=== PATIENT | female | born 1970 | race African-American/Black ===

== ENCOUNTER 2017-12-22 15:58 | Emergency (ER) | payer MEDICARE ==
[~2017-12-22] VITALS: Ht 172.7 cm; Wt 90.7 kg
[2017-12-22] MEDS ORDERED: EXCEDRIN MIGRA1 EAC3 (16:23)
[2017-12-22] MEDS ORDERED: NORCO 10-325 T1 EACH (16:23)
[2017-12-22] MEDS ORDERED: LEVOTHYROXINE200 MCG (16:23)
[2017-12-22] MEDS ORDERED: BOTOX100 UNIT IV (16:23)
[2017-12-22] MEDS ORDERED: LOSARTAN POTASS25 MG (16:23)
[2017-12-22] MEDS ORDERED: MECLIZINE HCL12.5 MG PO (16:23)
--- NOTE | 2017-12-22 17:40 | Diagnostic Imaging Report ---
EXAMINATION: Head CT HISTORY: Weakness, LOC COMPARISON: None. TECHNIQUE: Multidetector axial images were obtained without contrast from the foramen magnum to the vertex . The images were reconstructed using brain and bone algorithms. Thin section brain images were reformatted into coronal and sagittal planes. Image quality: Minimal motion artifact limits evaluation near the vertex. Dose modulation, iterative reconstruction, and/or weight based adjustment of the mA/kV was utilized to reduce the radiation dose to as low as reasonably achievable. FINDINGS: Parenchyma: 1. Ill-defined bilateral superior frontal white matter hypodensities mainly on the left centrum semiovale, which may be related to artifact versus edema, ischemia, chronic microvascular ischemic changes among other causes. 2. No mass or hemorrhage. No CT evidence of acute territorial vascular insult. Extra-axial spaces:No abnormal density. No extra-axial fluid collections Brain volume: Normal for age. Ventricles: No hydrocephalus or displacement. Arteries: No density suggestive of thrombus. Dural sinuses: No abnormal density. Extra-axial spaces: No abnormal density. Foramen magnum: No mass, Chiari malformation, or basilar invagination. Sella: No obvious mass. Paranasal/mastoid sinuses: Mild mucosal inflammatory thickening and partial opacification of the partially visualized ethmoidal and sphenoid sinuses. Skull/Scalp: No lytic or blastic lesions. No fractures. IMPRESSION: 1. Nonspecific mostly bilateral superior frontal white matter hypodensities as detailed above, a brain MRI is recommended for further evaluation if clinically indicated. 2. No intracranial hemorrhage, mass or hydrocephalus. 3. Partially visualized bilateral ethmoidal and sphenoid sinusitis. Signed by: Dr. Krystal Boyle M.D. on 12/22/2017 5:37 PM
--- NOTE | 2017-12-22 17:54 | Diagnostic Imaging Report ---
EXAM: XR CHEST 1 VIEW DATE: 12/22/2017 12:00 AM INDICATION: Generalized weakness COMPARISON: None FINDINGS: Lines and Tubes: None Heart and Mediastinum: No acute cardiomediastinal findings. Lungs and Pleura: No significant pleural effusion, pneumothorax, or focal consolidation. Bones and Soft Tissues: No acute findings. IMPRESSION: 1. No acute cardiopulmonary findings. Signed by: Dr. Everton Candelaria MD on 12/22/2017 5:51 PM
== END 2017-12-22 19:26 | disposition short-term general hospital (02) ==
LOC: FSED 15:58
DX: R51 Headache (principal); G61.0 Guillain-Barre syndrome; G62.89 Other specified polyneuropathies; J00 Acute nasopharyngitis [common cold]
CPT/HCPCS: 70450; 71045; 80053; 80307; 81003; 82553; 84484; 85025; 85379; 85610; 86308; 93005; 99284

== ENCOUNTER 2018-08-20 12:27 | Emergency (ER) | payer MEDICARE ==
[~2018-08-20] VITALS: Ht 175.3 cm; Wt 91.2 kg
[~2018-08-20 12:27] MED LIST: BOTOX100 UNIT IV; EXCEDRIN MIGRA1 EAC3; LEVOTHYROXINE200 MCG; LOSARTAN POTASS25 MG; MECLIZINE HCL12.5 MG PO; NORCO 10-325 T1 EACH
[2018-08-20] MEDS ORDERED: ASPIRIN 81 MG CHEW TAB PO ONE (12:30)
[2018-08-20] MEDS ORDERED: SODIUM CHLORIDE 0.9% 1000ML 1,000 ML IV SCH (12:30)
--- OUTSIDE RECORDS SUMMARY | 2018-08-20 12:30 | XMS REPORT | Continuity of Care Document ---
Author Author [facility] Interface Address Unknown Phone Unavailable Problems Problem Status Onset Date Classification Date Reported Comments Source Fibromyalgia Active Diagnosis 07/25/2018 Jacey Najam Counseling NOS Active Diagnosis 07/25/2018 Jacey Najam Pain, joint, multiple sites Active Diagnosis 07/25/2018 Jacey Najam Myalgia Active Diagnosis 07/25/2018 Jacey Najam Medications Medication Details Route Status Patient Instructions Ordering Provider Order Date Source Lyrica 1 capsule Orally Active 100 MG Orally 1 tab twice daily Najam 06/26/2018 Jacey Nachinyerem Levothyroxine Sodium 1 tablet on an empty stomach in the morning Orally Active 200 MCG Orally Once a day Najam Jacey Najam Gabapentin 1 capsule Orally Active 300 MG Orally Once a day Najam Jacey Nasukhwinder Sumatriptan 1 spray as needed one time Nasally Active 20 MG/ACT Nasally Once a day Najahuma Mari Nachinyerem Excedrin 1 tab Oral Active Oral Najam Jacey Nachinyerem Lyrica 1 capsule Orally Active 100 MG Orally 1 tab twice daily Naj[place]uma Mari Nachinyerem Meclizine HCl 1 tablet as needed Orally Active 25 MG Orally Once a day Najam Jacey Najam [place] 1 tablet as needed Orally Active 7.5-325 MG Orally every 6 hrs Najam Jacey Najam Levetiracetam 1 tablet Orally Active 750 MG Orally Twice a day Najam Jacey Najam Losartan Potassium 1 tablet Orally Active 50 MG Orally Once a day Najam Jacey Najam Keppra 1 tablet Orally Active 750 MG Orally Twice a day Najam Jacey Najam Aspirin/Acetaminophen/Caffeine (Excedrin Migraine Caplet) 1 Each Tablet Active [facility] Botulinum Toxin Type A (Botox) 100 Unit Vial Active [facility] Hydrocodone Bit/Acetaminophen ([place] 10-325 Tablet) 1 Each Tablet Active [facility] Levothyroxine Sodium 200 Mcg Tablet Active [facility] Losartan Potassium 25 Mg Tablet Active [facility] Meclizine Hcl 12.5 Mg Tablet Bedtime Active [facility] Allergies, Adverse Reactions, Alerts Substance Category Reaction Severity Reaction type Status Date Reported Comments Source NSAIDs Adverse Reaction Info Not Available Adverse Reaction Active 07/24/2018 Jacey Najam Immunizations Immunization Date Given Site Status Last Updated Comments Source Results Order Name Results Value Reference Range Date Interpretation Comments Source Vital Signs Vital Sign Value Date Comments Source Height 68 07/24/2018 Jacey Najam Diastolic (mm Hg) 83 07/24/2018 Jacey Najam Systolic (mm Hg) 122 07/24/2018 Jacey Najam Weight 208.0 07/24/2018 Jacey Najam Height 68 06/26/2018 Jacey Najam Diastolic (mm Hg) 84 06/26/2018 Jacey Najam Systolic (mm Hg) 126 06/26/2018 Jacey Najam Weight 204.4 06/26/2018 Jacey Najam Encounters Location Location Details Encounter Type Encounter Number Reason For Visit Attending Provider ADM Date DC Date Status Source Departed Emergency Room [id number] KENDRA NEAL MD 12/22/2017 12/22/2017 [facility] Procedures Procedure Code Date Perfomer Comments Source
--- OUTSIDE RECORDS SUMMARY | 2018-08-20 12:30 | XMS REPORT ---
Author Author Jacey Anand Organization [employer] Address Unknown Phone Unavailable Care Team Providers Care Therapy Aide Name Role Phone Jacey Anand CP Unavailable Allergies, Adverse Reactions, Alerts Substance Reaction Event Type NSAIDs Info Not Available Drug Allergy Problems Problem Type Condition Code Onset Dates Condition Status Assessment Fibromyalgia M79.7 Active Problem Fibromyalgia M79.7 Active Assessment Counseling NOS Z71.9 Active Assessment Pain, joint, multiple sites M25.50 Active Assessment Myalgia M79.10 Active Medications Medication Code System Code Instructions Start Date End Date Status Dosage Levothyroxine Sodium ND 36851718813 200 MCG Orally Once a day Active 1 tablet on an empty stomach in the morning Gabapentin ND 97397928534 300 MG Orally Once a day Active 1 capsule Sumatriptan ND 22142915109 20 MG/ACT Nasally Once a day Active 1 spray as needed one time Excedrin NDC 0 Oral Active 1 tab Lyrica ND 47464763950 100 MG Orally 1 tab twice daily Active 1 capsule Meclizine HCl ND 98699301220 25 MG Orally Once a day Active 1 tablet as needed [place] ND 15831162097 7.5-325 MG Orally every 6 hrs Active 1 tablet as needed Levetiracetam ND 06940480063 750 MG Orally Twice a day Active 1 tablet Losartan Potassium ND 37777396700 50 MG Orally Once a day Active 1 tablet Keppra [facility] 97693170185 750 MG Orally Twice a day Active 1 tablet Vital Signs Date/Time: July 24, 2018 Height 68 in Blood Pressure Diastolic 83 mm Hg Blood Pressure Systolic 122 mm Hg Weight 208.0 lbs Results No Known Results Summary Purpose [employer] Submission
--- OUTSIDE RECORDS SUMMARY | 2018-08-20 12:30 | XMS REPORT | Clinical Summary ---
Author Author REUBEN [facility] Address Unknown Phone Unavailable Care Team Providers Care Importer Or Exporter Name Role Phone Shamar Holloway PCP Allergies No Known Allergies Medications End Date Status Medication Sig Dispensed Refills Start Date Active HYDROcodone-acetaminophen Take 1 tablet 0 (NORCO 10-325) 10-325 mg by mouth 8 per tablet every 6 (six) hours as needed. Active losartan-hydroCHLOROthiaz Take 1 tablet 0 leonard (HYZAAR) 50-12.5 mg by mouth 8 per tablet daily. Active levothyroxine (SYNTHROID, Take 1 tablet 0 LEVOTHROID) 200 MCG by mouth 8 tablet daily. Active meclizine (ANTIVERT) 12.5 Take 1 tablet 0 mg tablet by mouth every 6 (six) hours as needed. 12/24/2018 Active levETIRAcetam (KEPPRA) Take 1 tablet 60 tablet 3 500 MG tablet (500 mg 8 total) by mouth 2 (two) times daily. 12/24/2017 Discontinued levETIRAcetam (KEPPRA) Take 1 tablet 60 tablet 3 500 MG tablet (500 mg 8 total) by mouth 2 (two) times daily. Active Problems Problem Noted Date Generalized weakness 12/22/2017 Other specified hypothyroidism 12/22/2017 Essential hypertension 12/22/2017 Other chronic pain 12/22/2017 Syncope 12/22/2017 Encounters Care Team Description Date Type Specialty Huma Calvillo MD [place], MD Ehsan Saldana Khannan K., MD Essential hypertension; Generalized weakness; Other chronic pain; Other specified hypothyroidism; Syncope, unspecified syncope type; Seizure (HCC); New onset seizure (HCC) 12/22/2017 [facility] Internal Medicine - Encounter 12/24/2017 after 08/19/2017 Family History Medical History Relation Name Comments Diabetes Maternal Grandmother Heart disease Maternal Grandmother COPD Mother Diabetes Mother Heart disease Mother Relation Name Status Comments Maternal Grandmother Mother Social History Date Tobacco Use Types Packs/Day Years Used Never Smoker Smokeless Tobacco: Never Used Alcohol Use Drinks/Week oz/Week Comments Yes Social Sex Assigned at Date Recorded Not on file Industry Job Start Date Occupation Not on file Not on file Not on file Travel End Travel History Travel Start No recent travel history available. Last Filed Vital Signs Time Taken Vital Sign Reading 12/24/2017 12:10 PM CDT Blood Pressure 124/75 12/24/2017 12:10 PM CDT Pulse 57 12/24/2017 12:10 PM CDT Temperature 36.1 C (96.9 F) 12/24/2017 12:10 PM CDT Respiratory Rate 18 12/24/2017 12:10 PM CDT Oxygen Saturation 98% - Inhaled Oxygen - Concentration 12/22/2017 8:00 PM CDT Weight 89.8 kg (198 lb) 12/22/2017 8:00 PM CDT Height 172.7 cm (5' 8") 12/22/2017 8:00 PM CDT Body Mass Index 30.11 Plan of Treatment Not on file Procedures Comments Procedure Name Priority Date/Time Associated Diagnosis RHYTHM STRIP - SCAN 07/03/2018 6:10 AM CDT REPORT OF PROCEDURE - 12/25/2017 ENDOSCOPY SCAN 11:32 AM CDT RHYTHM STRIP - SCAN 12/25/2017 11:32 AM CDT ECHOCARDIOGRAM REPORT - 12/24/2017 SCAN 5:23 PM CDT 2D ECHO W/ DOPPLER Routine 12/24/2017 (CW/PW/COLOR) 11:32 AM CDT MR BRAIN WITHOUT & WITH Routine 12/24/2017 IV CONTRAST 5:08 AM CDT URINALYSIS W/ REFLEX Routine 12/24/2017 URINE CULTURE 1:14 AM CDT CBC W/PLT COUNT & AUTO Routine 12/24/2017 DIFFERENTIAL 1:11 AM CDT CBC W/PLT COUNT & AUTO Routine 12/24/2017 DIFFERENTIAL 1:11 AM CDT MAGNESIUM Routine 12/24/2017 1:11 AM CDT BASIC METABOLIC PANEL (7) Routine 12/24/2017 1:11 AM CDT EEG AWAKE AND DROWSY Routine 12/23/2017 5:33 PM CDT CBC W/PLT COUNT & AUTO Routine 12/23/2017 DIFFERENTIAL 1:03 PM CDT CBC W/PLT COUNT & AUTO Routine 12/23/2017 DIFFERENTIAL 1:03 PM CDT MR SPINE LUMBAR WITHOUT Routine 12/23/2017 IV CONTRAST 11:50 AM CDT URINALYSIS W/ REFLEX Routine 12/23/2017 URINE CULTURE 10:26 AM CDT POCT-GLUCOSE METER Routine 12/23/2017 7:14 AM CDT MAGNESIUM Routine 12/23/2017 5:40 AM CDT BASIC METABOLIC PANEL (7) Routine 12/23/2017 5:40 AM CDT IRON, TIBC, % SAT. Routine 12/23/2017 (WITHOUT FERRITIN) 5:40 AM CDT CREATINE KINASE (CK) Routine 12/23/2017 5:40 AM CDT FERRITIN Routine 12/23/2017 5:40 AM CDT VITAMIN B12 AND FOLATE Routine 12/23/2017 5:40 AM CDT TSH/FREE T4 IF INDICATED Routine 12/23/2017 5:40 AM CDT BLOOD CULTURE Routine 12/23/2017 5:40 AM CDT RAPID INFLUENZA A&B Routine 12/22/2017 SCREEN 9:06 PM CDT RESPIRATORY PANEL [facility] Add-On 12/22/2017 8:48 PM CDT after 08/19/2017 Results * RHYTHM STRIP - SCAN (07/03/2018 6:10 AM CDT) Only the most recent of 2 results within the time period is included. Narrative Performed At * EKG-SCANNED (12/25/2017 11:32 AM CDT) Narrative Performed At * ECHOCARDIOGRAM REPORT - SCAN (12/24/2017 5:23 PM CDT) Narrative Performed At * 2D Echo W/Doppler(CW/PW/Color) (12/24/2017 11:32 AM CDT) Ejection Fraction [facility] ECHO HEARTLAB [facility] Specimen Narrative Performed At Transthoracic Echocardiography Report (TTE) [facility] ECHO HEARTLAB Demographics [facility] Patient Name KUMAR TEJEDA Date of Study 12/24/2017 [id number] Female Visit Number [id number] Room Number [id number] Number Date of Birth1970Referring Physician Huma Calvillo MD Age47 year(s)Hide Grader Jas Santacruz Interpreting Jordy Ray, Physician Fellow GAYLE Akbar Procedure Type of Study TTE procedure:2DECHO W DOPPLER(CW/PW/COLOR) (Routine) Indications:Unexplained Pre-syncope/Syncope. Clinical History HGB 10.8 HCT 36.5 % HTN THYROID DISESE Syncope Height: 68 inches Weight: 89.81 kg (198 lbs) BSA: 2.04 m^2 BMI: 30.11 kg/m^2 HR: 56 bpm BP: 135/77 mmHg Summary Normal left ventricular chamber size. Normal wall thickness. Normal overall left ventricular systolic function. No apparent segmental wall motion abnormalities. LVEF by Villa's method of disk assessment is normal (55-60%) . Otherwise, essentially normal exam. Previous Study No prior exam available for comparison. Signature Findings Technical Quality: Technically adequate exam. Rhythm/BPSlow rhythm during the exam. Left Ventricle Normal left ventricular chamber size. Normal wall thickness. Normal overall left ventricular systolic function. No apparent segmental wall motion abnormalities. LVEF by Villa's method of disk assessment is normal (55-60%) . Left AtriumLA size is normal . Right VentricleThe borderline enlarged right ventricular chamber size RV systolic function is within normal limits. Right Atrium RA size is normal. Aortic Valve Normal AoV structure A trace of Aortic regurgitation Mitral Valve Normal MV structure Tricuspid ValveTV structure is normal. A trace of tricuspid regurgitation. Estimated peak systolic PA pressure is 20-25 mmHg . Pulmonic Valve Normal PV structure by limited views A trace of pulmonary regurgitation. AortaAortic root size (SInus of Valsalva diameter) is normal . PericardiumNo significant pericardial effusion is visualized. IVC/SVC/PA/PV/PleuralThe estimated RA pressure by IVC dynamics 0-5mmHg . Chambers/Structures Left Atrium LA Volume: 43.76 ml LA Area: 16.69 cm^2 LA Vol. Index: 21 ml/m^2 Left Ventricle LVIDd: 4.84 cmLVEDV:109.37 ml LVIDs: 3.48 cmLVESV:42.11 ml LV Septum Diastolic: 0.92 cmLVEF 2D Cube: 62.8 % LV Septum Systolic: 1.22 cm LV PW Diastolic: 1.01 cmLV Length: 8.51 cm LV PW Systolic: 1.3 cmLV FS: 28.1 % LVEDV Villa's:108.25 ml LVESV Villa's:43.4 ml LVEDVI: 53 ml/m^2 LVEF Villa's: 59.9 %LVESVI: 21 ml/m^2 LVOT Diameter: 2.23 cm LVEF: 61.5 % Right Ventricle RVOT Diameter: 4.21 cm Doppler/Quantitative Measurements Mitral Valve MV Peak E-Wave: 0.69 m/sMV Peak A-Wave: 0.55 m/s E/A Ratio: 1.26 Peak Gradient: 1.9 mmHg Deceleration Time: 266.7 msec MV Serjio. Peak: Tissue Doppler E' Septal Velocity: 0.11 m/sE/E': 6.3 Aortic Valve Peak Velocity: 1.45 m/sMean Velocity: 0.98 m/s Peak Gradient: 8.38 mmHg Mean Gradient: 4.42 mmHg AV Area (continuity): 2.95 cm^2 AV VTI: 30.57 cm AV DVI: 0.76 LVOT Peak Velocity: 1.12 m/s Peak Gradient: 5.05 mmHg Mean Velocity: 0.77 m/s Mean Gradient: 2.75 mmHg LVOT Diameter: 2.23 cmLVOT VTI: 23.09 cm LVOT Area: 3.91 cm^2LVOT SV:90.14 ml LVOT CO: 5.05 l/min LVOT CI: 2.48 l/min/m^2 Procedure Note Interface, External Ris In - 12/24/2017 5:00 PM CDT Transthoracic Echocardiography Report (TTE) Demographics Patient Name KUMAR TEJEDA Date of Study 12/24/2017 Gender Female Visit Number [id number] Race Black Room Number [id number] Number Date of 1970 Referring Physician Huma Calvillo MD Age 47 year(s) Hide Grader Jas Santacruz Interpreting Jordy Ray, Physician Fellow GAYLE Akbar Procedure Type of Study TTE procedure:2DECHO W DOPPLER(CW/PW/COLOR) (Routine) Indications:Unexplained Pre-syncope/Syncope. Clinical History HGB 10.8 HCT 36.5 % HTN THYROID DISESE Syncope Height: 68 inches Weight: 89.81 kg (198 lbs) BSA: 2.04 m^2 BMI: 30.11 kg/m^2 HR: 56 bpm BP: 135/77 mmHg Summary Normal left ventricular chamber size. Normal wall thickness. Normal overall left ventricular systolic function. No apparent segmental wall motion abnormalities. LVEF by Villa's method of disk assessment is normal (55-60%) . Otherwise, essentially normal exam. Previous Study No prior exam available for comparison. Signature Findings Technical Quality: Technically adequate exam. Rhythm/BP Slow rhythm during the exam. Left Ventricle Normal left ventricular chamber size. Normal wall thickness. Normal overall left ventricular systolic function. No apparent segmental wall motion abnormalities. LVEF by Villa's method of disk assessment is normal (55-60%) . Left Atrium LA size is normal . Right Ventricle The borderline enlarged right ventricular chamber size RV systolic function is within normal limits. Right Atrium RA size is normal. Aortic Valve Normal AoV structure A trace of Aortic regurgitation Mitral Valve Normal MV structure Tricuspid Valve TV structure is normal. A trace of tricuspid regurgitation. Estimated peak systolic PA pressure is 20-25 mmHg . Pulmonic Valve Normal PV structure by limited views A trace of pulmonary regurgitation. Aorta Aortic root size (SInus of Valsalva diameter) is normal . Pericardium No significant pericardial effusion is visualized. IVC/SVC/PA/PV/Pleural The estimated RA pressure by IVC dynamics 0-5mmHg . Chambers/Structures Left Atrium LA Volume: 43.76 ml LA Area: 16.69 cm^2 LA Vol. Index: 21 ml/m^2 Left Ventricle LVIDd: 4.84 cm LVEDV:109.37 ml LVIDs: 3.48 cm LVESV:42.11 ml LV Septum Diastolic: 0.92 cm LVEF 2D Cube: 62.8 % LV Septum Systolic: 1.22 cm LV PW Diastolic: 1.01 cm LV Length: 8.51 cm LV PW Systolic: 1.3 cm LV FS: 28.1 % LVEDV Villa's:108.25 ml LVESV Villa's:43.4 ml LVEDVI: 53 ml/m^2 LVEF Villa's: 59.9 % LVESVI: 21 ml/m^2 LVOT Diameter: 2.23 cm LVEF: 61.5 % Right Ventricle RVOT Diameter: 4.21 cm Doppler/Quantitative Measurements Mitral Valve MV Peak E-Wave: 0.69 m/s MV Peak A-Wave: 0.55 m/s E/A Ratio: 1.26 Peak Gradient: 1.9 mmHg Deceleration Time: 266.7 msec MV Serjio. Peak: Tissue Doppler E' Septal Velocity: 0.11 m/s E/E': 6.3 Aortic Valve Peak Velocity: 1.45 m/s Mean Velocity: 0.98 m/s Peak Gradient: 8.38 mmHg Mean Gradient: 4.42 mmHg AV Area (continuity): 2.95 cm^2 AV VTI: 30.57 cm AV DVI: 0.76 LVOT Peak Velocity: 1.12 m/s Peak Gradient: 5.05 mmHg Mean Velocity: 0.77 m/s Mean Gradient: 2.75 mmHg LVOT Diameter: 2.23 cm LVOT VTI: 23.09 cm LVOT Area: 3.91 cm^2 LVOT SV:90.14 ml LVOT CO: 5.05 l/min LVOT CI: 2.48 l/min/m^2 Performing Organization Address City/State/[facility] Corporationcode Phone Number [facility] ECHO [facility] * MR brain without & with IV contrast (12/24/2017 5:08 AM CDT) Specimen Narrative Performed At FINAL REPORT [facility] Exam: MRI brain with and without contrast Comparison:None. Reason for exam: Seizures new or progressive. Liver and kidney lesions. Discussion: Multiplanar MR imaging of the brain was provided [id number] IV gadolinium administration using T1, T2, FLAIR, FFE, diffusion weighted sequences, and ADC map imaging. There is no intracranial mass, mass effect, extra-axial collection, hydrocephalus or herniation. The temporal lobes structures including the hippocampal formations are unremarkable, without signal abnormality.There is no restricted diffusion to suggest an acute infarct. There is no abnormality on susceptibility sequences to suggest hemorrhage or hemosiderin deposition. The skull base flow-voids are seen in keeping with their patency. There is mild to moderate paranasal sinus mucosal thickening. There are secretions in the right sphenoid sinus and bilateral ethmoid sinuses which represent acute sinusitis. The mastoid air cells are clear. The orbits, sella and parasellar regions are unremarkable. The craniocervical junction is normal. Impression: Paranasal sinus mucosal inflammatory disease with small secretions which may represent acute sinusitis in the proper clinical setting. Otherwise unremarkable contrast-enhanced brain MRI. Signed: Jacquelin Schneider MD Report Verified Date/Time:12/24/2017 05:44:19 Reading Location: [facility] B1 C013Y CT Body Reading Room Procedure Note Interface, External Ris In - 12/24/2017 11:25 AM CDT FINAL REPORT Exam: MRI brain with and without contrast Comparison: None. Reason for exam: Seizures new or progressive. Liver and kidney lesions. Discussion: Multiplanar MR imaging of the brain was provided vtr-[id number]-wyqy IV gadolinium administration using T1, T2, FLAIR, FFE, diffusion weighted sequences, and ADC map imaging. There is no intracranial mass, mass effect, extra-axial collection, hydrocephalus or herniation. The temporal lobes structures including the hippocampal formations are unremarkable, without signal abnormality. There is no restricted diffusion to suggest an acute infarct. There is no abnormality on susceptibility sequences to suggest hemorrhage or hemosiderin deposition. The skull base flow-voids are seen in keeping with their patency. There is mild to moderate paranasal sinus mucosal thickening. There are secretions in the right sphenoid sinus and bilateral ethmoid sinuses which represent acute sinusitis. The mastoid air cells are clear. The orbits, sella and parasellar regions are unremarkable. The craniocervical junction is normal. Impression: Paranasal sinus mucosal inflammatory disease with small secretions which may represent acute sinusitis in the proper clinical setting. Otherwise unremarkable contrast-enhanced brain MRI. Signed: Jacquelin Schneider MD Report Verified Date/Time: 12/24/2017 05:44:19 Reading Location: [facility] B1 C013Y CT Body Reading Room Performing Organization Address City/State/Zipcode Phone Number [facility] * Urinalysis w/Microscopic + Reflex to Culture (12/24/2017 1:14 AM CDT) Only the most recent of 2 results within the time period is included. Color, UA Yellow [facility] Clarity, UA Clear [facility] Specific Triangle, UA 1.012 1.001 - 1.035 [facility] pH, UA 6.0 5.0 - 8.0 [facility] Protein, UA Negative Negative [facility] Glucose, UA Negative Negative [facility] Ketones, UA Negative Negative [facility] Bilirubin, UA Negative Negative [facility] Blood, UA Negative Negative [facility] Nitrite, UA Negative Negative [facility] Leukocytes, UA Negative Negative [facility] Urobilinogen, UA 0.2 0.2 - 1.0 mg/dL [facility] RBC, UA 1 /HPF [facility] WBC, UA 3 /HPF [facility] Bacteria, UA Many [facility] Squam Epithel, UA 1 /HPF [facility] Amorphous Crystals Rare [facility] Specimen Source [facility] Specimen Urine Performing Organization Address City/State/Zipcode Phone Number [facility] [address] [place] [address] MED[facility] * CBC with platelet count + automated diff (12/24/2017 1:11 AM CDT) Only the most recent of 2 results within the time period is included. WBC 5.8 3.5 - 10.5 K/L [facility] RBC 4.04 3.93 - 5.22 M/L [facility] Hemoglobin 10.8 (L) 11.2 - 15.7 GM/DL [facility] Hematocrit 36.5 34.1 - 44.9 % [facility] MCV 90.3 79.4 - 94.8 fL [facility] MCH 26.7 25.6 - 32.2 pg [facility] MCHC 29.6 (L) 32.2 - 35.5 GM/DL [facility] RDW 12.6 11.7 - 14.4 % [facility] Platelets 214 150 - 450 K/CU MM [facility] MPV 9.6 9.4 - 12.3 fL [facility] nRBC 0 0 - 0 /100 WBC [facility] % Neutros 32 % [facility] % Lymphs 57 % [facility] % Monos 6 % [facility] % Eos 5 % [facility] % Baso 1 % [facility] # Neutros 1.86 1.56 - 6.13 K/L [facility] # Lymphs 3.31 1.18 - 3.74 K/L [facility] # Monos 0.34 0.24 - 0.36 K/L [facility] # Eos 0.26 0.04 - 0.36 K/L [facility] # Baso 0.03 0.01 - 0.08 K/L [facility] Immature 0 0 - 1 % [facility] Granulocytes-[facility] Specimen Blood Performing Organization Address City/State/Zipcode Phone Number [facility] [address] [place] [address] MEDICAL CENTER * Magnesium (12/24/2017 1:11 AM CDT) Only the most recent of 2 results within the time period is included. Magnesium 1.9 1.6 - 2.6 mg/dL [facility] Specimen Blood Performing Organization Address City/State/Zipcode Phone Number [facility] [address] [place], [place] [id number] [facility] * Basic metabolic panel (12/24/2017 1:11 AM CDT) Only the most recent of 2 results within the time period is included. Sodium 140 136 - 145 meq/L [facility] Potassium 3.3 (L) 3.5 - 5.1 meq/L [facility] Chloride 111 (H) 98 - 107 meq/L [facility] CO2 20 (L) 22 - 29 meq/L [facility] BUN 9 7 - 21 mg/dL [facility] Creatinine 0.69 0.57 - 1.25 mg/dL [facility] Glucose 96 70 - 105 mg/dL [facility] Calcium 8.6 8.4 - 10.2 mg/dL [facility] EGFR 110Comment: ESTIMATED GFR IS mL/min/1.73 sq m [facility] NOT ACCURATE CREATININE [facility] CLEARANCE IN PREDICTING GLOMERULAR FILTRATION RATE. ESTIMATED GFR IS NOT APPLICABLE FOR DIALYSIS PATIENTS. Specimen Blood Performing Organization Address City/State/Zipcode Phone Number [facility] [address] [place] [address] [facility] * EEG AWAKE AND DROWSY (12/23/2017 5:33 PM CDT) Specimen Narrative Performed At DATE OF EE12/23/2017 GE RIS DATE OF REPORT: 12/23/2017 ACC: [id number] EE Start time: 1712 hrs Stop time: 1733 hrs ICD-10:R56.9, R55 CPT Code: 04158 HISTORY: 47 year old RHD female referred for inpatient EEG to assess for epileptiform activity. Her history if significant for hypothyroidism, HTN, migraines, and chronic back pain. She has recently been experiencing recurrent syncope with associated motor weakness that lasts for several minutes afterward. She had witnessed events in MRI today concerning for seizures. MEDICATIONS THAT COULD AFFECT EEG: [place] TECHNICAL SUMMARY: This is a digital EEG with video was recorded with 32 input channels on a Nativoo system and then reviewed with bipolar and referential montages using the modified combinatorial system nomenclature. DESCRIPTION OF RECORD: During the maximally alert state a 9.5 Hz posterior dominant rhythm was seen that was symmetric, reactive to eye opening and well regulated.More anteriorly, low voltage fronto-central beta predominated.Drowsiness was characterized by alpha attenuation and increased frontocentral theta. There was also independent bilateral temporal delta activity seen in drowsiness as well. No stage II sleep features were seen. HV: Hyperventilation was not performed. PHOTIC STIMULATION: Photic stimulation was done from 3-30 Hz; no photic driving was seen; photoparoxysmal responses were absent. IMPRESSION: Normal awake and drowsy EEG CLINICAL CORRELATION: An EEG without epileptiform discharges does not exclude the possibility of epilepsy.It the clinical suspicion of epilepsy remains, consider additional EEG recordings. Samia Schaefer M.D. Fellow, [facility] Neurophysiology Service Bernard Pryor M.D., GANESH, MAURIZIO ROWAN Professor of Neurology, [facility] [employer] Director, [facility] Head, [facility] Neurophysiology Lab Procedure Note Interface, External Ris In - 12/23/2017 7:22 PM CDT DATE OF EE12/23/2017 DATE OF REPORT: 12/23/2017 ACC: [id number] EE Start time: 1712 hrs Stop time: 1733 hrs ICD-10: R56.9, R55 CPT Code: 25039 HISTORY: 47 year old RHD female referred for inpatient EEG to assess for epileptiform activity. Her history if significant for hypothyroidism, HTN, migraines, and chronic back pain. She has recently been experiencing recurrent syncope with associated motor weakness that lasts for several minutes afterward. She had witnessed events in MRI today concerning for seizures. MEDICATIONS THAT COULD AFFECT EEG: [place] TECHNICAL SUMMARY: This is a digital EEG with video was recorded with 32 input channels on a Nativoo system and then reviewed with bipolar and referential montages using the modified combinatorial system nomenclature. DESCRIPTION OF RECORD: During the maximally alert state a 9.5 Hz posterior dominant rhythm was seen that was symmetric, reactive to eye opening and well regulated. More anteriorly, low voltage fronto-central beta predominated. Drowsiness was characterized by alpha attenuation and increased frontocentral theta. There was also independent bilateral temporal delta activity seen in drowsiness as well. No stage II sleep features were seen. HV: Hyperventilation was not performed. PHOTIC STIMULATION: Photic stimulation was done from 3-30 Hz; no photic driving was seen; photoparoxysmal responses were absent. IMPRESSION: Normal awake and drowsy EEG CLINICAL CORRELATION: An EEG without epileptiform discharges does not exclude the possibility of epilepsy. It the clinical suspicion of epilepsy remains, consider additional EEG recordings. Samia Schaefer M.D. Fellow, [facility] Neurophysiology Service Bernard Pryor M.D., FACNS, FAAN, MAURIZIO Professor of Neurology, [facility] Director, [facility] Epilepsy [place] Head, Sushil [facility] Neurophysiology Lab Performing Organization Address City/State/Zipcode Phone Number [facility] * MR spine lumbar without IV contrast (12/23/2017 11:50 AM CDT) Specimen Narrative Performed At FINAL REPORT [facility] MR Lumbar spine without contrast INDICATION: Lower extremity weakness. TECHNIQUE: MRI of the lumbar spine utilizing the following sequences: Sagittal T1, T2, STIR; axial T1 and T2 COMPARISON: None available. FINDINGS: There is mild left convex lumbar spine curvature. Vertebral height and alignment are otherwise maintained. There are degenerative endplate changes, Schmorl's nodes, and incidental hemangiomas. The spinal canal is congenitally narrow. The conus medullaris is unremarkable and terminates at L1-2. T12-L1: Unremarkable L1-2: Mild facet arthropathy. No significant canal or foraminal stenosis. L2-3: Left asymmetric disc bulge, facet arthropathy, and ligamentous thickening. Minimal left foraminal stenosis. No significant canal or right foraminal stenosis. L3-4: Left asymmetric disc bulge with broad based left foraminal disc protrusion, facet arthropathy, and ligamentous thickening. Mild to moderate left and mild right foraminal stenosis. Mild canal stenosis. L4-5: Disc bulge extending into the foraminal regions, left greater than right facet arthropathy, and ligamentous thickening. Mild to moderate left greater than right foraminal stenosis. Mild to moderate canal stenosis. L5-S1: Left greater than right facet arthropathy and ligamentous thickening with mild left foraminal stenosis. No significant canal or right foraminal stenosis. There is an incidental Tarlov/perineural cyst at S2-3 on the left. A small right renal T2 hyperintense lesion is too small to characterize, but possibly a cyst. There is a hepatic 1.3 cm T2 hyperintense lesion, potentially a cyst or hemangioma. Advise dedicated liver imaging. There is colonic diverticulosis and paraspinal muscle deconditioning. IMPRESSION: 1. Congenitally narrow spinal canal with degenerative changes and multifactorial mild to moderate L4-5 and mild L3-4 canal stenosis. 2. Neural foraminal stenoses as discussed. Advise correlation with radiculopathic symptoms 3. Small hepatic and right renal lesions. Consider dedicated imaging. 4. Colonic diverticulosis. 5. If Guillain Jber syndrome remains a concern, postcontrast imaging is suggested as sensitivity is markedly limited on a noncontrast study. Signed: Taty Warren MD Report Verified Date/Time:12/23/2017 13:35:12 Reading Location: [facility] [id number] Neuro Reading Room Procedure Note Interface, External Ris In - 12/23/2017 1:37 PM CDT FINAL REPORT MR Lumbar spine without contrast INDICATION: Lower extremity weakness. TECHNIQUE: MRI of the lumbar spine utilizing the following sequences: Sagittal T1, T2, STIR; axial T1 and T2 COMPARISON: None available. FINDINGS: There is mild left convex lumbar spine curvature. Vertebral height and alignment are otherwise maintained. There are degenerative endplate changes, Schmorl's nodes, and incidental hemangiomas. The spinal canal is congenitally narrow. The conus medullaris is unremarkable and terminates at L1-2. T12-L1: Unremarkable L1-2: Mild facet arthropathy. No significant canal or foraminal stenosis. L2-3: Left asymmetric disc bulge, facet arthropathy, and ligamentous thickening. Minimal left foraminal stenosis. No significant canal or right foraminal stenosis. L3-4: Left asymmetric disc bulge with broad based left foraminal disc protrusion, facet arthropathy, and ligamentous thickening. Mild to moderate left and mild right foraminal stenosis. Mild canal stenosis. L4-5: Disc bulge extending into the foraminal regions, left greater than right facet arthropathy, and ligamentous thickening. Mild to moderate left greater than right foraminal stenosis. Mild to moderate canal stenosis. L5-S1: Left greater than right facet arthropathy and ligamentous thickening with mild left foraminal stenosis. No significant canal or right foraminal stenosis. There is an incidental Tarlov/perineural cyst at S2-3 on the left. A small right renal T2 hyperintense lesion is too small to characterize, but possibly a cyst. There is a hepatic 1.3 cm T2 hyperintense lesion, potentially a cyst or hemangioma. Advise dedicated liver imaging. There is colonic diverticulosis and paraspinal muscle deconditioning. IMPRESSION: 1. Congenitally narrow spinal canal with degenerative changes and multifactorial mild to moderate L4-5 and mild L3-4 canal stenosis. 2. Neural foraminal stenoses as discussed. Advise correlation with radiculopathic symptoms 3. Small hepatic and right renal lesions. Consider dedicated imaging. 4. Colonic diverticulosis. 5. If Guillain Jber syndrome remains a concern, postcontrast imaging is suggested as sensitivity is markedly limited on a noncontrast study. Signed: Taty Warren MD Report Verified Date/Time: 12/23/2017 13:35:12 Reading Location: [facility] [id number] Neuro Reading Room Performing Organization Address City/State/Zipcode Phone Number [facility] * POC-Glucose meter (12/23/2017 7:14 AM CDT) POC-Glucose Meter 92Comment: TESTED AT [facility] 70 - 110 mg/dL [place] [id number] [facility] Specimen Blood Performing Organization Address City/[facility]/Zipcode Phone Number [address] [address] [facility] * Vitamin B12 and Folate (12/23/2017 5:40 AM CDT) Vitamin B12 459 213 - 816 pg/mL [facility] Folate 10.9 >=7.0 ng/mL [facility] Specimen Blood Performing Organization Address City/[facility] Phone Number [address] * TSH/Free T4 If Indicated (12/23/2017 5:40 AM CDT) TSH 2.82 0.35 - 4.94 uIU/mL [facility] Specimen Blood Performing Organization Address City/[facility]/Zipcode Phone Number [address] * Iron, TIBC, % sat. (without ferritin) (12/23/2017 5:40 AM CDT) Iron 86 40 - 160 ug/dL [facility] TIBC 359 250 - 450 ug/dL [facility] Iron % Saturation 24 20 - 55 % [facility] Specimen Blood Performing Organization Address [facility] Phone Number [address] * Blood culture (12/23/2017 5:40 AM CDT) Result No growth in 5 days [facility] Specimen Blood Performing Organization Address City/[facility] Phone Number [address] * Ferritin (12/23/2017 5:40 AM CDT) Ferritin 46 5 - 275 ng/mL [facility] Specimen Blood Performing Organization Address City/[facility] Phone Number [address] * Creatine Kinase (CK) (12/23/2017 5:40 AM CDT) Total CK 172 29 - 200 U/L [facility] Specimen Blood Performing Organization Address City/State/Zipcode Phone Number [facility] [address] [place], [place] [phone] [facility] [place] * Rapid Influenza A&B Screen (12/22/2017 9:06 PM CDT) Rapid Influenza A Antigen NEGATIVE LABORATORY FINDING Negative, Inconclusive [facility] Rapid influenza B Antigen NEGATIVE LABORATORY FINDING Negative, Inconclusive [facility] Specimen Nasal Performing Organization Address City/State/Zipcode Phone Number [facility] [address] [place], [place] [phone] [facility] * Respiratory Panel [facility] (12/22/2017 8:48 PM CDT) Human Metapneumovirus Not detected Not detected, Equivocal [facility] Rhinovirus Not detected Not detected, Equivocal [facility] Influenza A Not detected Not detected, Equivocal [facility] INFLUENZA A (NO SUBTYPE) Not detected Not detected, Equivocal [facility] Influenza A subtype H1 Not detected Not detected, Equivocal [facility] Influenza A Subtype H3 Not detected Not detected, Equivocal [facility] Influenza A Subtype Not detected Not detected, Equivocal [facility] H1-2009 [facility] Influenza B Not detected Not detected, Equivocal [facility] Respiratory Syncytial Not detected Not detected, Equivocal [facility] Virus [facility] Parainfluenza Virus 1 Not detected Not detected, Equivocal [facility] Parainfluenza Virus 2 Not detected Not detected, Equivocal [facility] Parainfluenza virus 3 Not detected Not detected, Equivocal [facility] Parainfluenza Virus 4 Not detected Not detected, [facility]ivocal [facility] Adenovirus Not detected Not detected, Equivocal [facility] Coronavirus 229E Not detected Not detected, [facility]ocal [facility] Coronavirus HKU1 Not detected Not detected, Equivocal [facility] Coronavirus NL63 Not detected Not detected, Equivocal [facility] Coronavirus OC43 Not detected Not detected, Equiv[facility] Bordetella Pertussis Not detected Not detected, [facility] Chlamydophila Pneumoniae Not detected Not detected, Equivocal [facility] Mycoplasma Pneumoniae Not detected Not detected, Equivocal [facility] Specimen Nasopharyngeal Narrative Performed At Other viruses and bacteria not targeted by this PCR panel cannot be excluded; [facility] therefore clinical correlation and follow up of serology, culture results, and [facility] other molecular studies is required. The results are not intended to be used as the sole means for clinical diagnosis or patient management decisions. This sample was tested at the [facility] using the [employer]unch[employer] Respiratory Panel. It is FDA cleared and has been verified and approved by the [facility] for clinical use on nasal swab specimens. It is not FDA-cleared for use on bronchial wash/lavage samples. However, for this sample type, validation was performed and test characteristics were determined and approved, by [facility] for clinical use under the Clinical Laboratory Improvement Amendments (CLIA) of 1988 requirements. Therefore, FDA clearance is not required.This laboratory is CLIA-certified and [employer] (CAP)-accredited to perform high complexity testing. Performing Organization Address City/State/Zipcode Phone Number [address] [phone] [facility] 08/19/2017 Insurance Payer Benefit Subscriber ID Type Phone Address Plan / Group [facility] [employer] xxxxxxxx [facility] Contracted ALL Advance Directives For more information, please contact: [address] [address] Date Inactivated Comments Code Status Date Activated 12/24/2017 7:07 PM Full Code 12/22/2017 10:06 PM This code status was determined by: Patient
--- OUTSIDE RECORDS SUMMARY | 2018-08-20 12:30 | XMS REPORT ---
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 Role Phone Jacey Anand CP Unavailable [...] End Date Status Dosage Levothyroxine Sodium ND 31285564559 200 MCG Orally Once a day Active 1 tablet on an empty stomach in the morning Sumatriptan ND 21612428637 20 MG/ACT Nasally Once a day Active 1 spray as needed one time Lejunior ND 11485055626 7.5-325 MG Orally every 6 hrs Active 1 tablet as needed Meclizine HCl ND 60972799386 25 MG Orally Once a day Active 1 tablet as needed Lyrica ND 13980865156 100 MG Orally 1 tab twice daily June 26, 2018 Active 1 capsule Excedrin ND 0 Oral Active 1 tab Levetiracetam ND 17217415567 750 MG Orally Twice a day Active 1 tablet Gabapentin ND 43668511275 300 MG Orally Once a day Active 1 capsule Losartan Potassium ND 48078029162 50 MG Orally Once a day Active 1 tablet Vital Signs Date/Time: June 26, 2018 Height 68 in Blood Pressure Diastolic 84 mm Hg Blood Pressure Systolic 126 mm Hg Weight 204.4 lbs Results No Known Results Summary Purpose [employer] Submission
--- OUTSIDE RECORDS SUMMARY | 2018-08-20 12:31 | XMS REPORT ---
Author Author [facility] Address Unknown Phone Unavailable Care Team Providers Care [employer] Name Role Phone En PATEL Unavailable Unavailable Ailyn NEAL Unavailable Unavailable Payers Payer Name Policy Type Policy Number Effective Date Expiration Date Problems This patient has no known problems. Allergies, Adverse Reactions, Alerts This patient has no known allergies or adverse reactions. Medications This patient has no known medications. Results Test Description Test Time Test Comments Text Results Atomic Results Result Comments - XR CHEST 2 V 2018-08-19 13:18:00 FAX: Naveen Paz DO [phone] [facility]: O [facility]: REG FAX: Raul Paz DO [phone] Name: KUMAR KNOWLES [facility] : 1970 Age/S: 48/F [address] Unit #: [id number] Loc: [place] [address] Phys: Naveen Gallardo DO Acct: [id number] Dis Date: Status: REG CLI PHONE #: [phone] Exam Date: 08/19/2018 1249 FAX #: [phone] Reason: R06.02 EXAMS: CPT CODE: [id number] XR CHEST 2 V 39860 HISTORY: R06.02. COMPARISON: None available. AP and lateral view of the chest: No acute infiltrates, effusion or congestion. Cardiac and the mediastinal silhouette are normal. IMPRESSION: No acute infiltrates, effusion or congestion. at 1318 Reported and signed by: Prudencio Peacock M.D. CC: Naveen Gallardo; Raul Gallardo DO Technologist: DREW ORTIZ JR Trnscrd Date/Time/By: 08/19/2018 (5058) : By: [email or web address] Orig Print D/T: S: 08/19/2018 (7588) PAGE 1 Signed Report BLOOD CULTURE 2017-12-28 11:00:00 CULTURE (BEAKER) (test tyxk=8105) No growth in 5 days MR, BRAIN, [id number] 05:44:00FINAL REPORT Exam: MRI brain with and without contrast Comparison: None. Reason for exam: Seizures new or progressive. Liver and kidney lesions. Discussion: Multiplanar MR imaging of the brain was provided [id number] IV gadolinium administration using T1, T2, FLAIR, [...] are unremarkable. The craniocervical junction is normal. Impression:Paranasal sinus mucosal inflammatory disease with small secretions which may represent acute sinusitis in the proper clinical setting.Otherwise unremarkable contrast-enhanced brain MRI. Signed: Jacquelin Schneider MDReport Verified Date/Time: 12/24/2017 05:44:19 Reading Location: [facility] C013Y CT Body Reading Room ALYSIS W/ REFLEX URINE [id number] 01:55:00* Test Item Value Reference Range Comments COLOR (BEAKER) (test xbqt=269) Yellow CLARITY (BEAKER) (test poik=555) Clear SPECIFIC GRAVITY UA (BEAKER) (test kbvr=390) 1.012 1.001-1.035 PH UA (BEAKER) (test kwnl=644) 6.0 5.0-8.0 PROTEIN UA (BEAKER) (test ofnw=978) Negative Negative GLUCOSE UA (BEAKER) (test hepd=776) Negative Negative KETONES UA (BEAKER) (test ttzk=211) Negative Negative BILIRUBIN UA (BEAKER) (test uvou=471) Negative Negative BLOOD UA (BEAKER) (test upix=549) Negative Negative NITRITE UA (BEAKER) (test fwei=005) Negative Negative LEUKOCYTE ESTERASE UA (BEAKER) (test wmim=215) Negative Negative UROBILINOGEN UA (BEAKER) (test cxqs=624) 0.2 mg/dL 0.2-1.0 RBC UA (BEAKER) (test daav=020) 1 /HPF WBC UA (BEAKER) (test ifoh=623) 3 /HPF BACTERIA (BEAKER) (test brhk=400) Many SQUAMOUS EPITHELIAL (BEAKER) (test pmox=191) 1 /HPF AMORPHOUS CRYSTALS (BEAKER) (test gbsw=8876) Rare SOURCE(BEAKER) (test twnu=4437) [id number] 01:43:00* Test Item Value Reference Range Comments MAGNESIUM (BEAKER) (test ffsb=283) 1.9 mg/dL 1.6-2.6 BASIC METABOLIC [id number] 01:43:00* Test Item Value Reference Range Comments SODIUM (BEAKER) (test vqrs=324) 140 meq/L 136-145 POTASSIUM (BEAKER) (test pkzq=676) 3.3 meq/L 3.5-5.1 CHLORIDE (BEAKER) (test yqsd=710) 111 meq/L 98-107 CO2 (BEAKER) (test lhub=210) 20 meq/L 22-29 BLOOD UREA NITROGEN (BEAKER) (test rwst=410) 9 mg/dL 7-21 CREATININE (BEAKER) (test okkz=864) 0.69 mg/dL 0.57-1.25 GLUCOSE RANDOM (BEAKER) (test epeg=986) 96 mg/dL 70-105 CALCIUM (BEAKER) (test gayh=104) 8.6 mg/dL 8.4-10.2 EGFR (BEAKER) (test hpde=6711) 110 mL/min/1.73 sq m ESTIMATED GFR IS NOT ACCURATE CREATININE CLEARANCE IN PREDICTING GLOMERULAR FILTRATION RATE. ESTIMATED GFR IS NOT APPLICABLE FOR DIALYSIS PATIENTS. CBC W/PLT COUNT & AUTO [id number] 01:40:00* Test Item Value Reference Range Comments WHITE BLOOD CELL COUNT (BEAKER) (test borw=743) 5.8 K/ L 3.5-10.5 RED BLOOD CELL COUNT (BEAKER) (test ngxt=118) 4.04 M/ L 3.93-5.22 HEMOGLOBIN (BEAKER) (test nuxz=182) 10.8 GM/DL 11.2-15.7 HEMATOCRIT (BEAKER) (test onzl=521) 36.5 % 34.1-44.9 MEAN CORPUSCULAR VOLUME (BEAKER) (test vpet=097) 90.3 fL 79.4-94.8 MEAN CORPUSCULAR HEMOGLOBIN (BEAKER) (test fsey=319) 26.7 pg 25.6-32.2 MEAN CORPUSCULAR HEMOGLOBIN CONC (BEAKER) (test pbfw=129) 29.6 GM/DL 32.2-35.5 RED CELL DISTRIBUTION WIDTH (BEAKER) (test lafk=862) 12.6 % 11.7-14.4 PLATELET COUNT (BEAKER) (test kzxo=689) 214 K/CU MM 150-450 MEAN PLATELET VOLUME (BEAKER) (test jhbr=220) 9.6 fL 9.4-12.3 NUCLEATED RED BLOOD CELLS (BEAKER) (test hwka=411) 0 /100 WBC 0-0 NEUTROPHILS RELATIVE PERCENT (BEAKER) (test nkuj=828) 32 % LYMPHOCYTES RELATIVE PERCENT (BEAKER) (test yxkz=759) 57 % MONOCYTES RELATIVE PERCENT (BEAKER) (test cxgm=630) 6 % EOSINOPHILS RELATIVE PERCENT (BEAKER) (test esjl=989) 5 % BASOPHILS RELATIVE PERCENT (BEAKER) (test gqjp=291) 1 % NEUTROPHILS ABSOLUTE COUNT (BEAKER) (test qxpu=954) 1.86 K/ L 1.56-6.13 LYMPHOCYTES ABSOLUTE COUNT (BEAKER) (test wxnw=052) 3.31 K/ L 1.18-3.74 MONOCYTES ABSOLUTE COUNT (BEAKER) (test zuqo=354) 0.34 K/ L 0.24-0.36 EOSINOPHILS ABSOLUTE COUNT (BEAKER) (test fjjw=665) 0.26 K/ L 0.04-0.36 BASOPHILS ABSOLUTE COUNT (BEAKER) (test hpec=325) 0.03 K/ L 0.01-0.08 IMMATURE GRANULOCYTES-RELATIVE PERCENT (BEAKER) (test vbqr=9920) 0 % 0-1 EEG AWAKE AND [id number] 19:22:00Reason for exam:->seizuresDATE OF EE12/23/2017 DATE OF REPORT: 12/23/2017 ACC: [id number] EE Start time: 1712 hrs Stop time: 1733 hrs ICD-10: R56.9, R55 CPT Code: 43428 HISTORY: 47 year old RHD female referred for inpatient EEG to assess for epileptiform activity. Her history if significant for hypothyroidism, HTN, migraines, and chronic back pain. She has recently been experiencing recurrent syncope with ass ociated motor weakness that lasts for several minutes afterward. She had witness ed events in MRI today concerning for seizures. MEDICATIONS THAT COULD AFFECT EEG: [place] TECHNICAL SUMMARY: This is a digital EEG with video was recorded wi th 32 input channels on a [employer] system and then reviewed with bipolar and referential montages using the modified combinatorial system nomenclature. DE SCRIPTION OF RECORD: During the maximally alert state a 9.5 Hz posterior dominan t rhythm was seen that was symmetric, reactive to eye opening and well regulated . More anteriorly, low voltage fronto-central beta predominated. Drowsiness wa s characterized by alpha attenuation and increased frontocentral theta. There wa s also independent bilateral temporal delta activity seen [...] additional EEG recordings. Samia Schaefer M.D. Fellow, [facility] Neurophysiology Service Bernard Pryor M.D., FACNS, FAAN, MA[employer], [facility] [employer] Director, [facility], [place], [facility] Neurophysiology Lab Electronically bj d by: BERNARD PRYOR on 12/23/2017 07:22 PM CBC W/PLT COUNT & AUTO DIFFERENTIAL 2017-12-23 13:42:00* Test Item Value Reference Range Comments WHITE BLOOD CELL COUNT (BEAKER) (test ihem=771) 5.2 K/ L 3.5-10.5 RED BLOOD CELL COUNT (BEAKER) (test zanx=285) 4.32 M/ L 3.93-5.22 HEMOGLOBIN (BEAKER) (test quyf=040) 11.6 GM/DL 11.2-15.7 HEMATOCRIT (BEAKER) (test yebh=023) 37.3 % 34.1-44.9 MEAN CORPUSCULAR VOLUME (BEAKER) (test fgit=563) 86.3 fL 79.4-94.8 MEAN CORPUSCULAR HEMOGLOBIN (BEAKER) (test sayq=700) 26.9 pg 25.6-32.2 MEAN CORPUSCULAR HEMOGLOBIN CONC (BEAKER) (test njyh=617) 31.1 GM/DL 32.2-35.5 RED CELL DISTRIBUTION WIDTH (BEAKER) (test vcmu=272) 12.6 % 11.7-14.4 PLATELET COUNT (BEAKER) (test sjpe=320) 296 K/CU MM 150-450 MEAN PLATELET VOLUME (BEAKER) (test qefc=158) 9.9 fL 9.4-12.3 NUCLEATED RED BLOOD CELLS (BEAKER) (test fvyw=520) 0 /100 WBC 0-0 NEUTROPHILS RELATIVE PERCENT (BEAKER) (test fupy=755) 40 % LYMPHOCYTES RELATIVE PERCENT (BEAKER) (test nmym=698) 46 % MONOCYTES RELATIVE PERCENT (BEAKER) (test hcxi=225) 9 % EOSINOPHILS RELATIVE PERCENT (BEAKER) (test nmxd=584) 5 % BASOPHILS RELATIVE PERCENT (BEAKER) (test zsrg=672) 0 % NEUTROPHILS ABSOLUTE COUNT (BEAKER) (test rywn=851) 2.10 K/ L 1.56-6.13 LYMPHOCYTES ABSOLUTE COUNT (BEAKER) (test ulba=751) 2.38 K/ L 1.18-3.74 MONOCYTES ABSOLUTE COUNT (BEAKER) (test mpkl=337) 0.44 K/ L 0.24-0.36 EOSINOPHILS ABSOLUTE COUNT (BEAKER) (test hksq=436) 0.24 K/ L 0.04-0.36 BASOPHILS ABSOLUTE COUNT (BEAKER) (test bpmu=103) 0.01 K/ L 0.01-0.08 IMMATURE GRANULOCYTES-RELATIVE PERCENT (BEAKER) (test vazd=6302) 0 % 0-1 MR, SPINE, LUMBAR, WITHOUT [id number] 13:35:00FINAL REPORT MR Lumbar spine without contrast INDICATION: Lower extremity weakness. TECHNIQUE: MRI of the lumbar spine utilizing the following sequences: Sagittal T1, T2, STIR; axial T1 and T2 COMPARISON: None available. FINDINGS:There is mild left convex lumbar spine curvature. [...] left greater than right facet arthropathy, and liga mentous thickening. Mild to moderate left greater than right foraminal stenosis. Mild to moderate canal stenosis. L5-S1: Left greater than right facet arthropat hy and ligamentous thickening with mild left foraminal stenosis. No significant canal or right foraminal stenosis. There is an incidental Tarlov/perineural cyst at S2-3 on the left. A small right renal T2 hyperintense lesion is too small to characterize, but possibly a cyst. There is a hepatic 1.3 cm T2 hyperintense le velia, potentially a cyst or hemangioma. Advise dedicated liver imaging. There is colonic diverticulosis and paraspinal muscle deconditioning. IMPRESSION: 1. Con genitally narrow spinal canal with degenerative changes and multifactorial mild to moderate L4-5 and mild L3-4 canal stenosis. 2. Neural foraminal stenoses as d iscussed. Advise correlation with radiculopathic symptoms 3. Small hepatic and r ight renal lesions. Consider dedicated imaging. 4. Colonic diverticulosis. 5. If Guillain [place] syndrome remains a concern, postcontrast imaging is suggested as sensitivity is markedly limited on a noncontrast study. Signed: Moose Warren MDReport Verified Date/Time: 12/23/2017 13:35:12 Reading Location: [facility] C013V Neuro Reading Room ALYSIS W/ REFLEX URINE [id number] 12:11:00* Test Item Value Reference Range Comments COLOR (BEAKER) (test aelu=207) Yellow CLARITY (BEAKER) (test ssdc=648) Hazy SPECIFIC GRAVITY UA (BEAKER) (test pioi=342) 1.019 1.001-1.035 PH UA (BEAKER) (test necr=195) 6.0 5.0-8.0 PROTEIN UA (BEAKER) (test jhyj=889) 10 mg/dL Negative GLUCOSE UA (BEAKER) (test tgqo=206) Negative Negative KETONES UA (BEAKER) (test tage=096) Negative Negative BILIRUBIN UA (BEAKER) (test eidi=694) Negative Negative BLOOD UA (BEAKER) (test kpjc=768) Negative Negative NITRITE UA (BEAKER) (test hxxm=741) Negative Negative LEUKOCYTE ESTERASE UA (BEAKER) (test cwmw=245) Negative Negative UROBILINOGEN UA (BEAKER) (test fmyt=484) 2.0 mg/dL 0.2-1.0 RBC UA (BEAKER) (test tjih=893) 1 /HPF WBC UA (BEAKER) (test lpyr=772) 3 /HPF BACTERIA (BEAKER) (test hinn=169) Few MUCUS (BEAKER) (test lxwl=1769) Moderate SQUAMOUS EPITHELIAL (BEAKER) (test sbjl=783) 2 /HPF SOURCE(BEAKER) (test pxfg=3861) RESPIRATORY PANEL [id number] 09:25:00* Test Item Value Reference Range Comments HUMAN METAPNEUMOVIRUS (BEAKER) (test lgvt=4360) Not detected Not detected, Equivocal RHINOVIRUS (BEAKER) (test fuof=8119) Not detected Not detected, Equivocal INFLUENZA A (BEAKER) (test gdte=3199) Not detected Not detected, Equivocal INFLUENZA A (NO SUBTYPE) (test kvng=4690) Not detected Not detected, Equivocal INFLUENZA A SUBTYPE H1 (BEAKER) (test gdxa=4421) Not detected Not detected, Equivocal INFLUENZA A SUBTYPE H3 (BEAKER) (test snli=1189) Not detected Not detected, Equivocal INFLUENZA A SUBTYPE H1-2009 (BEAKER) (test sbxp=7494) Not detected Not detected, Equivocal INFLUENZA B (BEAKER) (test sxwo=0093) Not detected Not detected, Equivocal RESPIRATORY SYNCYTIAL VIRUS (BEAKER) (test ksmo=8499) Not detected Not detected, Equivocal PARAINFLUENZA VIRUS 1 (BEAKER) (test hjhd=8019) Not detected Not detected, Equivocal PARAINFLUENZA VIRUS 2 (BEAKER) (test yikn=1276) Not detected Not detected, Equivocal PARAINFLUENZA VIRUS 3 (BEAKER) (test oyzf=1753) Not detected Not detected, Equivocal PARAINFLUENZA VIRUS 4 (BEAKER) (test pfpi=7724) Not detected Not detected, Equivocal ADENOVIRUS (BEAKER) (test fmiq=5653) Not detected Not detected, Equivocal CORONAVIRUS 229E (BEAKER) (test quca=1813) Not detected Not detected, Equivocal CORONAVIRUS HKU1 (BEAKER) (test xmyp=3856) Not detected Not detected, Equivocal CORONAVIRUS NL63 (BEAKER) (test vdxv=3216) Not detected Not detected, Equivocal CORONAVIRUS OC43 (BEAKER) (test amjq=4710) Not detected Not detected, Equivocal BORDETELLA PERTUSSIS (BEAKER) (test nibi=0917) Not detected Not detected, Equivocal CHLAMYDOPHILA PNEUMONIAE (BEAKER) (test bfys=6016) Not detected Not detected, Equivocal MYCOPLASMA PNEUMONIAE (BEAKER) (test rqgo=5074) Not detected Not detected, Equivocal Other viruses and bacteria not targeted by this PCR panel cannot be excluded; th erefore clinical correlation and follow up of serology, culture results, and oth er molecular studies is required. The results are not intended to be used as the sole means for clinical diagnosis or patient management decisions. This sample was tested at the [facility] Molecular Diagnostics Laboratory using the Blood cell Storage FilmA rray Respiratory Panel. It is FDA cleared and has been verified and approved by the [facility] Molecular Diagnostics Laboratory for clinical use on nasal swab specim ens. It is not FDA-cleared for use on bronchial wash/lavage samples. However, fo r this sample type, validation was performed and test characteristics were deter mined and approved, by [facility] Molecular Diagnostics laboratory for clinical use u nder the Clinical Laboratory Improvement Amendments (CLIA) of 1988 requirements. Therefore, FDA clearance is not required. This laboratory is CLIA-certified and [employer] (CAP)-accredited to perform high complexity t esting.[id number] 07:35:00* Test Item Value Reference Range Comments FERRITIN (BEAKER) (test vryy=062) 46 ng/mL 5-275 TSH/FREE T4 IF [id number] 07:35:00* Test Item Value Reference Range Comments THYROID STIMULATING HORMONE (BEAKER) (test bnhy=034) 2.82 uIU/mL 0.35-4.94 VITAMIN B12 AND [id number] 07:35:00* Test Item Value Reference Range Comments VITAMIN B12 (BEAKER) (test otgw=546) 459 pg/mL 213-816 FOLATE (BEAKER) (test sprm=220) 10.9 ng/mL >=7.0 POCT-GLUCOSE [id number] 07:27:00* Test Item Value Reference Range Comments POC-GLUCOSE METER (BEAKER) (test ufzr=2926) 92 mg/dL 70-[address] [facility] [address] [facility] [address] [id number] 07:02:00* Test Item Value Reference Range Comments MAGNESIUM (BEAKER) (test nuvj=131) 2.2 mg/dL 1.6-2.6 BASIC METABOLIC [id number] 07:02:00* Test Item Value Reference Range Comments SODIUM (BEAKER) (test qurn=463) 142 meq/L 136-145 POTASSIUM (BEAKER) (test sfxm=027) 3.4 meq/L 3.5-5.1 CHLORIDE (BEAKER) (test zgwh=066) 107 meq/L 98-107 CO2 (BEAKER) (test dehy=894) 26 meq/L 22-29 BLOOD UREA NITROGEN (BEAKER) (test sqty=791) 11 mg/dL 7-21 CREATININE (BEAKER) (test enaj=966) 0.75 mg/dL 0.57-1.25 GLUCOSE RANDOM (BEAKER) (test ygxc=402) 90 mg/dL 70-105 CALCIUM (BEAKER) (test riqk=670) 9.7 mg/dL 8.4-10.2 EGFR (BEAKER) (test oixe=8449) 100 mL/min/1.73 sq m ESTIMATED GFR IS NOT ACCURATE CREATININE CLEARANCE IN PREDICTING GLOMERULAR FILTRATION RATE. ESTIMATED GFR IS NOT APPLICABLE FOR DIALYSIS PATIENTS. CREATINE KINASE (CK)2017-12-23 07:02:00* Test Item Value Reference Range Comments CREATINE KINASE TOTAL (BEAKER) (test teaq=089) 172 U/L 29-200 IRON, TIBC, % SAT. (WITHOUT FERRITIN)2017-12-23 06:59:00* Test Item Value Reference Range Comments IRON (BEAKER) (test iuon=569) 86 ug/dL 40-160 TOTAL IRON BINDING CAPACITY (BEAKER) (test hkfi=265) 359 ug/dL 250-450 IRON % SATURATION (2) (BEAKER) (test evvp=4726) 24 % 20-55 RAPID INFLUENZA A&B [id number] 22:18:00* Test Item Value Reference Range Comments RAPID INFLUENZA A AG (BEAKER) (test zmog=3862) Negative Negative, Inconclusive RAPID INFLUENZA B AG (BEAKER) (test lnvn=4392) Negative Negative, Inconclusive CXR 1 VEW - [id number] 17:51:00 [place] [address] Patient Name: KUMAR CARRERA MR #: [id number] : 1970 Age/Sex: 47/F Req #: [id number] Adm Physician: Ordered by: KENDRA NEAL MD Report #: [id number] Location: [facility] Room/Bed: Procedure: [id number] HOPD/CXR 1 VEW - HOPD Exam Date: 12/22/17 Exam Time: 1740 REPORT STAT US: Signed EXAM: XR CHEST 1 VIEW DATE: 12/22/2017 12:00 AM INDICATI ON: Generalized weakness COMPARISON: None FINDINGS: Lines and Tu bes: None Heart and Mediastinum: No acute cardiomediastinal findings. Lungs and Pleura: No significant pleural effusion, pneumothorax, or focal cons olidation. Bones and Soft Tissues: No acute findings. IMPRESSION: 1 . No acute cardiopulmonary findings. Signed by: Dr. Bonnie Candelaria MD on 5:51 PM Dictated By: BONNIE CANDELARIA MD 50 Transcribed By: ISI on 12/22/171750 COPY TO: KENDRA NEAL MD CT BRAIN [id number] 17:32:00 [place] [address] Patient Name: KUMAR CARRERA MR #: [id number] : 1970 Age/Sex: 47/F Req #: [id number] Adm Physician: Ordered by: KENDRA NEAL MD Report #: [id number] Location: [facility] Maranda bertrand/Bed: Procedure: [id number] HOPD/CT BRAIN WO-HOPD Exam Date: 12/22/17 Exam Time: 1715 REPORT STAT US: Signed EXAMINATION: Head CT HISTORY: Weakness, LOC COMPARISON: No ne. TECHNIQUE: Multidetector axial images were obtained without contrast from the foramen magnum to the vertex . The images were reconstructed using brain a nd bone algorithms. Thin section brain images were reformatted into coronal a nd sagittal planes. Image quality: Minimal motion artifact limits evaluation near the vertex. Dose modulation, iterative reconstruction, and/or weight based adjustment of the mA/kV was utilized to reduce the radiation dose to as low as reasonably achievable. FINDINGS: Parenchyma: 1. I ll-defined bilateral superior frontal white matter hypodensities mainly on the left centrum semiovale, which may be related to artifact versus edema, ischem ia, chronic microvascular ischemic changes among other causes. 2. No mass or hemorrhage. No CT evidence of acute territorial vascular insult. Extra-axial spaces:No abnormal density. No extra-axial fluid collections Brain volume: Normal for age. Ventricles: No hydrocephalus or displac ement. Arteries: No density suggestive of thrombus. Dural sinus es: No abnormal density. Extra-axial spaces: No abnormal density. Foramen magnum: No mass, Chiari malformation, or basilar invagination. Sella: No obvious mass. Paranasal/mastoid sinuses: Mild mucosal inflam matory thickening and partial opacification of the partially visualized ethmoi shai and sphenoid sinuses. Skull/Scalp: No lytic or blastic lesions. No fractures. IMPRESSION: 1. Nonspecific mostly bilateral superior fro ntal white matter hypodensities as detailed above, a brain MRI is recommended for further evaluation if clinically indicated. 2. No intracranial hemor rhage, mass or hydrocephalus. 3. Partially visualized bilateral ethmoidal and sphenoid sinusitis. Signed by: Dr. Alyssa Boyle M.D. on 12/22/2017 5:37 PM Dictated By: ALYSSA BOYLE MD 36 Transcribed By: ISI on 12/22/171736 COPY TO: KENDRA KERR MD
[2018-08-20] MEDS ORDERED: MORPHINE SULFATE 5 MG/ML VIAL IV ONE (12:45)
[2018-08-20] MEDS ORDERED: MORPHINE SULFATE INJ 4 MG/ML INJ 1ML IV ONE (12:45)
[2018-08-20] MEDS ORDERED: IOPAMIDOL 370 MG/ML 200 ML INFUS..BTL INJ ONE (13:05)
--- NOTE | 2018-08-20 14:26 | NUR ---
PT RESTING, VITAL SIGNS STABLE, CARIDACS TO BE DRAWN AT 1600. PT AWARE OF POC, PT VOICES NO COMPLAINTS AT THIS TIME.
--- NOTE | 2018-08-20 15:50 | Diagnostic Imaging Report ---
EXAM: CT Chest WITH contrast 08/20/2018 12:00 AM INDICATION: Chest pain COMPARISON: None TECHNIQUE: Chest was scanned utilizing a multidetector helical scanner from the lung apex through the level of the diaphragm after administration of IV contrast. Thin section reconstructions were obtained with special concentration on the pulmonary arteries. Coronal and sagittal reformations were obtained. Pulmonary embolism protocol was performed. Dose modulation, iterative reconstruction, and/or weight based adjustment of the mA/kV was utilized to reduce the radiation dose to as low as reasonably achievable IV CONTRAST: 100 cc Isovue-370 RADIATION DOSE: Total DLP: 560.07 mGy*cm Estimated effective dose: (DLP x 0.014 x size factor) mSv COMPLICATIONS: None FINDINGS: LINES/ TUBES: None. LUNGS AND AIRWAYS: No filling defect is identified within the pulmonary arteries to the segmental level. No pulmonary airspace opacity. Trachea and main bronchi are clear. PLEURA: No pleural effusion or pneumothorax. HEART AND MEDIASTINUM: No mediastinal, hilar or axillary lymphadenopathy. The heart is normal in size.. There is no pericardial effusion. There is no aneurysm or dissection of the thoracic aorta. Main pulmonary artery measures 7 cm diameter, normal. UPPER ABDOMEN: Included portions of the liver show hypodensities measuring 1.2 cm in segment 8 (series 2, image 105) and 1.1 cm in segment 4 (image 111). Internal density suggests these represent cysts. No other focal abnormality in the included portions of the liver, spleen, pancreas, adrenals and kidneys. BONES: No acute or suspicious bony lesion. Moderate thoracic levoscoliosis. SOFT TISSUES: Superficial surrounding soft tissue unremarkable. IMPRESSION: 1. No CT evidence for acute pulmonary embolism. No thoracic aortic aneurysm or dissection. 2. No focal pulmonary airspace opacity. Staff: Ilana Signed by: Dr. Kamlesh Preciado M.D. on 08/20/2018 3:47 PM
[2018-08-20 16:46] VITALS: BP 156/91
== END 2018-08-20 16:56 | disposition home or self-care (01) ==
LOC: FSED 12:27
DX: R07.89 Other chest pain (principal); R06.00 Dyspnea, unspecified; I10 Essential (primary) hypertension; G40.909 Epilepsy, unspecified, not intractable, without status epilepticus; E03.9 Hypothyroidism, unspecified
CPT/HCPCS: 71275; 80053; 81003; 81025; 84484; 85025; 85379; 93005; 99284; Q9967

== ENCOUNTER 2018-12-09 03:22 | Emergency (ER) | payer MEDICARE ==
[~2018-12-09] VITALS: Ht 175.3 cm; Wt 88.5 kg
--- NOTE | 2018-12-09 08:37 | Diagnostic Imaging Report ---
EXAMINATION: CXR 2 VIEW - HOPD INDICATION: Left neck pain COMPARISON: None FINDINGS: PA and lateral views TUBES and LINES: None. LUNGS: Lungs are well inflated. Lungs are clear. There is no evidence of pneumonia or pulmonary edema. PLEURA: No pleural effusion or pneumothorax. HEART AND MEDIASTINUM: The cardiomediastinal silhouette is unremarkable. BONES AND SOFT TISSUES: There are degenerative changes in the thoracic spine. Soft tissues are unremarkable. UPPER ABDOMEN: No free air under the diaphragm. Cholecystectomy clips in the right upper quadrant IMPRESSION: No acute thoracic radiographic abnormality. Signed by: Jairo Hernandez DO on 12/09/2018 8:33 AM
--- NOTE | 2018-12-09 08:38 | Diagnostic Imaging Report ---
Cervical Spine, 3 views HISTORY: Pain. COMPARISON: None. FINDINGS: Limited sensitivity for detection of subtle fractures and ligamentous abnormalities. On the lateral view, the entire cervical spine is visualized. Reversal of cervical lordosis. No acute displaced fracture involving the visualized cervical spine. Disc Spaces and Uncovertebral Joints: Preserved disc heights. Mild disc osteophytes at C6-C7. Facets: The facet joints are unremarkable. IMPRESSION: No acute radiographic abnormality. Mild degenerative changes in the lower cervical spine. Signed by: Jairo Hernandez DO on 12/09/2018 8:35 AM
== END 2018-12-09 05:08 | disposition home or self-care (01) ==
LOC: FSED 03:22
DX: I10 Essential (primary) hypertension (principal); I45.10 Unspecified right bundle-branch block
CPT/HCPCS: 71046; 72040; 80053; 82553; 84484; 85025; 85379; 93005; 99284

== ENCOUNTER → 2019-01-16 | Outpatient (CLI) | payer MEDICARE ==
[~2019-01-16] MED LIST changes: +REGADENOSON 0.4 MG/5 ML SYR IV ONE
== END ==
LOC: NM 08:44
PROVIDERS: ATTEND Internal Medicine
DX: R07.9 Chest pain, unspecified (principal)
CPT/HCPCS: 78452; 93017; A9502; J2785

== ENCOUNTER 2020-09-16 12:35 | Emergency (ER) | payer MEDICARE ==
[~2020-09-16] VITALS: Ht 172.7 cm; Wt 99.8 kg
[~2020-09-16 12:35] MED LIST changes: -REGADENOSON 0.4 MG/5 ML SYR IV ONE
[2020-09-16] MEDS ORDERED: NEURONTIN300 MG PO (13:09)
[2020-09-16] MEDS ORDERED: KEPPRA500 MG PO (13:09)
[2020-09-16] MEDS ORDERED: AMLODIPINE BESYL5 MG PO (13:09)
[2020-09-16] MEDS ORDERED: PREDNISONE20 MG PO (14:01)
[2020-09-16] MEDS ORDERED: AZITHROMYCIN250 MG PO (14:01)
[2020-09-16] MEDS ORDERED: VENTOLIN HFA18 GM INH (14:01)
== END 2020-09-16 14:05 | disposition home or self-care (01) ==
LOC: FSED 12:40
DX: R05 Cough (principal); J06.9 Acute upper respiratory infection, unspecified; I10 Essential (primary) hypertension; G40.909 Epilepsy, unspecified, not intractable, without status epilepticus; E03.9 Hypothyroidism, unspecified; K21.9 Gastro-esophageal reflux disease without esophagitis; G62.9 Polyneuropathy, unspecified; M54.9 Dorsalgia, unspecified; G89.29 Other chronic pain
CPT/HCPCS: 71046; 83518; 87400; 93005; 99283

== ENCOUNTER → 2020-11-01 | Outpatient (CLI) | payer MEDICARE ==
[~2020-11-01] MED LIST changes: +AMLODIPINE BESYL5 MG PO; +AZITHROMYCIN250 MG PO; +KEPPRA500 MG PO; +NEURONTIN300 MG PO; +PREDNISONE20 MG PO; +VENTOLIN HFA18 GM INH
== END ==
LOC: NM 08:32
PROVIDERS: ATTEND Internal Medicine
DX: R07.9 Chest pain, unspecified (principal)
CPT/HCPCS: 78452; 93017; 93306; A9502

== ENCOUNTER → 2020-12-06 | Outpatient (CLI) | payer MEDICARE ==
[~2020-12-06] MED LIST changes: +IOPAMIDOL 370 MG/ML 200 ML INFUS..BTL INJ ONE; +METOPROLOL TARTRATE INJ 1 MG/ML VIAL ONE; +NITROGLYCERIN 0.4 MG SUBL ONE; +SODIUM CHLORIDE 0.9% 100 ML ONE
[2020-12-06 09:15] LABS: CREATININE, SERUM 0.75 mg/dL (0.57-1.11)
== END ==
LOC: CT 08:14
PROVIDERS: ATTEND Internal Medicine
DX: R94.39 Abnormal result of other cardiovascular function study (principal)
CPT/HCPCS: 36415; 75574; 82565; 84520; J7050; Q9967

== ENCOUNTER 2021-02-21 07:10 | Emergency (ER) | payer MEDICARE ==
[~2021-02-21] VITALS: Ht 172.7 cm; Wt 94.0 kg
[~2021-02-21 07:10] MED LIST changes: -IOPAMIDOL 370 MG/ML 200 ML INFUS..BTL INJ ONE; -METOPROLOL TARTRATE INJ 1 MG/ML VIAL ONE; -NITROGLYCERIN 0.4 MG SUBL ONE; -SODIUM CHLORIDE 0.9% 100 ML ONE
[2021-02-21] MEDS ORDERED: AUGMENTIN 875-1 EACH PO (08:42)
== END 2021-02-21 09:01 | disposition home or self-care (01) ==
LOC: FSED 07:56
DX: R05.9 Cough, unspecified (principal); J20.9 Acute bronchitis, unspecified; B34.9 Viral infection, unspecified; I10 Essential (primary) hypertension; E03.9 Hypothyroidism, unspecified; G40.909 Epilepsy, unspecified, not intractable, without status epilepticus; M54.9 Dorsalgia, unspecified; G89.29 Other chronic pain
CPT/HCPCS: 81003; 83518; 87400; 99283

== ENCOUNTER 2021-05-07 19:16 | Observation (INO) | payer MEDICARE ==
[~2021-05-07] VITALS: Ht 172.7 cm; Wt 96.2 kg
[~2021-05-07 19:16] MED LIST changes: +AUGMENTIN 875-1 EACH PO
[2021-05-07] MEDS ORDERED: Morphine 4mg Syringe 4 MG/ML INJ IV STA (19:21)
[2021-05-07] MEDS ORDERED: SODIUM CHLORIDE 0.9% 1000ML 1,000 ML IV STA (19:21)
[2021-05-07] MEDS ORDERED: ONDANSETRON HCL INJ 2MG/ML 2ML 2 MG/ML VIAL IV ONE (19:30)
[2021-05-07] MEDS ORDERED: FAMOTIDINE 20 MG/2 ML VIAL IV ONE ×2 (19:30→19:45)
[2021-05-07] MEDS ORDERED: ONDANSETRON HCL INJ 2MG/ML 2ML 2 MG/ML VIAL ONE (19:44)
[2021-05-07] MEDS ORDERED: SODIUM CHLORIDE 0.9% 1000ML 1,000 ML ONE (19:45)
[2021-05-07] MEDS ORDERED: Morphine 4mg Syringe 4 MG/ML INJ ONE (19:45)
[2021-05-07] MEDS ORDERED: ZOLPIDEM TARTRATE 5 MG TAB PO PRN (21:30)
[2021-05-07] MEDS ORDERED: DIPHENHYDRAMINE HCL INJ 50 MG/ML VIAL IV PRN (21:30)
[2021-05-07] MEDS ORDERED: CLONIDINE HCL 0.1 MG TAB PO PRN (21:30)
[2021-05-07] MEDS ORDERED: GABAPENTIN600 MG PO (22:49)
[2021-05-07] MEDS: HYDROCODONE/APAP 7.5MG-325MG 1 EA TAB PO PRN (22:50)
[2021-05-07] MEDS ORDERED: METHYLPREDNISOLO4 MG PO (22:51)
[2021-05-07] MEDS ORDERED: MORPHINE SULFAT15 M1 PO (22:58)
[2021-05-07] MEDS ORDERED: CITALOPRAM HBR20 MG PO (22:58)
[2021-05-07] MEDS ORDERED: LEVOTHYROXINE175 MCG PO (22:58)
[2021-05-07] MEDS ORDERED: HYDROXYCHLOROQ200 MG PO (22:58)
[2021-05-07] MEDS ORDERED: CARVEDILOL6.25 MG PO (22:58)
[2021-05-07] MEDS ORDERED: HYDROCHLOROTHIA25 MG PO (22:58)
[2021-05-07] MEDS ORDERED: LINZESS290 MCG PO (22:58)
[2021-05-07] MEDS ORDERED: SUMATRIPTAN SUC25 MG PO (23:01)
[2021-05-07] MEDS ORDERED: LEVETIRACETAM500 MG PO (23:01)
[2021-05-07 23:08] VITALS: BP 140/92
[2021-05-07 23:19] VITALS: BP 140/92
[2021-05-07] MEDS ORDERED: LEVETIRACETAM 500 MG TAB PO SCH (23:40)
[2021-05-08] VITALS (7 sets, daily range): BP systolic 109–124; BP diastolic 75–92
[2021-05-08] MEDS ORDERED: SODIUM CHLORIDE 0.9% 250ML 250 ML ONE (00:08)
[2021-05-08] MEDS: PIPERACILLIN/TAZOBACTAM 3.375 GM in SODIUM CHLORIDE 0.9% 50ML 50 ML IV SCH ×4 (00:09→17:25)
[2021-05-08] MEDS: Morphine 4mg Syringe 4 MG/ML INJ IV PRN ×5 (00:09→21:53)
[2021-05-08] MEDS: ONDANSETRON HCL INJ 2MG/ML 2ML 2 MG/ML VIAL IV PRN ×5 (00:09→21:53)
[2021-05-08 07:37] LABS: CREATINE KINASE MB 2.9 ng/mL (0-5.0)
[2021-05-08 08:12] LABS: BASOPHILS % 0.5 % (0.0-1.0); EOSINOPHILS # (AUTO) 0.3 (0.0-0.4); EOSINOPHILS % 4.9 % (0.0-6.0); HEMATOCRIT 35.1 % (34.2-44.1); LYMPHOCYTES # (AUTO) 2.6 (1.0-3.2); LYMPHOCYTES % 45.2 % (18.0-39.1); MEAN CORPUSCULAR HGB CONC 31.3 g/dL (31-35); MONOCYTES # (AUTO) 0.4 (0.2-0.8); MONOCYTES % 6.8 % (4.4-11.3); NEUTROPHILS # (AUTO) 2.4 (2.1-6.9); NEUTROPHILS % 42.4 % (38.7-80.0); PLATELET COUNT 268 x10e3/uL (140-360); RED BLOOD COUNT 4.08 x10e6/uL (3.6-5.1); RED CELL DISTRIBUTION WIDTH 11.7 % (11.7-14.4)
[2021-05-08 08:16] LABS: ANION GAP 10.9 mmol/L (8-16); CALCIUM 8.8 mg/dL (8.4-10.2); CREATININE, SERUM 0.82 mg/dL (0.57-1.11); POTASSIUM 3.9 mmol/L (3.5-5.1)
[2021-05-08 08:20] LABS: ALBUMIN 3.6 g/dL (3.5-5.0); BILIRUBIN,DIRECT 0.5 mg/dL (0.0-0.5)
[2021-05-08 08:21] LABS: CHOL/HDL RATIO 3.1 (3.0-3.6)
[2021-05-08] MEDS: LEVETIRACETAM 500MG/5ML VIAL 500 MG in SODIUM CHLORIDE 0.9% 100 ML 100 ML IV SCH ×2 (08:49→19:45)
[2021-05-08] MEDS: SODIUM CHLORIDE 0.9% 1000ML 1,000 ML IV SCH (08:49)
[2021-05-08] MEDS: FAMOTIDINE 20 MG/2 ML VIAL IV SCH ×2 (08:49→17:25)
[2021-05-08] MEDS ORDERED: ASPIRIN 325 MG TAB EC PO SCH (09:00)
[2021-05-08] MEDS ORDERED: FAMOTIDINE 20 MG/2 ML VIAL IV SCH (09:00)
[2021-05-08] MEDS ORDERED: BUPIVACAINE 0.25% 30ML SDV ONE (10:11)
[2021-05-08] MEDS ORDERED: LIDOCAINE 1% W/EPINEPHRINE 20 ML VIAL ONE (10:11)
[2021-05-08] MEDS ORDERED: SEVOFLURANE INHAL SOLN 250 ML PEN BTL ONE (13:24)
[2021-05-08] MEDS ORDERED: PROPOFOL IV EMULSION 10 MG/ML 20 ML VIAL ONE (13:24)
[2021-05-08] MEDS ORDERED: POVIDONE IODINE 0.05% 0.05 % ML PO ONE (13:24)
[2021-05-08] MEDS ORDERED: ONDANSETRON HCL INJ 2MG/ML 2ML 2 MG/ML VIAL ONE (13:24)
[2021-05-08] MEDS ORDERED: ROCURONIUM BROMIDE 10 MG/ML 5ML VIAL IV ONE (13:24)
[2021-05-08] MEDS ORDERED: NEOSTIGMINE 1 MG/ML 10ML VIAL ONE (13:24)
[2021-05-08] MEDS ORDERED: DEXAMETHASONE SOD PHOS INJ 4 MG/ML SDV ONE (13:24)
[2021-05-08] MEDS ORDERED: LIDOCAINE HCL 2% LOCAL INJ 5 ML SDV VIAL INJ ONE (13:24)
[2021-05-08] MEDS ORDERED: ATROPINE SULFATE 1 MG/ML VIAL ONE (13:24)
[2021-05-08] MEDS ORDERED: MIDAZOLAM HCL 2 MG/2 ML VIAL ONE (13:38)
[2021-05-08] MEDS ORDERED: FENTANYL CITRATE/PF 100MCG/2 ML INJ ONE (13:38)
[2021-05-08 14:06] LABS: CREATINE KINASE MB 2.7 ng/mL (0-5.0)
[2021-05-08] MEDS: HYDROCODONE/APAP 7.5MG-325MG 1 EA TAB PO PRN (19:45)
[2021-05-09] VITALS: BP 106/71
[2021-05-09] MEDS: PIPERACILLIN/TAZOBACTAM 3.375 GM in SODIUM CHLORIDE 0.9% 50ML 50 ML IV SCH ×3 (00:33→11:44)
[2021-05-09] MEDS: SODIUM CHLORIDE 0.9% 1000ML 1,000 ML IV SCH (00:40)
[2021-05-09 04:00] VITALS: BP 106/71
[2021-05-09] MEDS: Morphine 4mg Syringe 4 MG/ML INJ IV PRN ×2 (05:34→10:20)
[2021-05-09] MEDS: ONDANSETRON HCL INJ 2MG/ML 2ML 2 MG/ML VIAL IV PRN (05:34)
[2021-05-09 07:05] LABS: BASOPHILS % 0.2 % (0.0-1.0); EOSINOPHILS # (AUTO) 0.1 (0.0-0.4); EOSINOPHILS % 0.7 % (0.0-6.0); HEMATOCRIT 32.9 % (34.2-44.1); HEMOGLOBIN 10.5 g/dL (12.0-16.0); LYMPHOCYTES # (AUTO) 2.2 (1.0-3.2); LYMPHOCYTES % 21.9 % (18.0-39.1); MEAN CORPUSCULAR HEMOGLOBIN 27.2 pg (28-32); MEAN CORPUSCULAR HGB CONC 31.9 g/dL (31-35); MEAN CORPUSCULAR VOLUME 85.2 fL (81-99); MONOCYTES # (AUTO) 0.6 (0.2-0.8); MONOCYTES % 6.4 % (4.4-11.3); NEUTROPHILS % 70.5 % (38.7-80.0); PLATELET COUNT 261 x10e3/uL (140-360); RED BLOOD COUNT 3.86 x10e6/uL (3.6-5.1); RED CELL DISTRIBUTION WIDTH 11.5 % (11.7-14.4)
[2021-05-09 07:22] LABS: ANION GAP 10.9 mmol/L (8-16); CALCIUM 8.9 mg/dL (8.4-10.2); CREATININE, SERUM 0.81 mg/dL (0.57-1.11); POTASSIUM 3.9 mmol/L (3.5-5.1)
[2021-05-09] MEDS: HYDROCODONE/APAP 7.5MG-325MG 1 EA TAB PO PRN (08:00)
[2021-05-09 08:08] VITALS: BP 117/82
[2021-05-09] MEDS: LEVETIRACETAM 500MG/5ML VIAL 500 MG in SODIUM CHLORIDE 0.9% 100 ML 100 ML IV SCH (09:46)
[2021-05-09] MEDS: FAMOTIDINE 20 MG/2 ML VIAL IV SCH (09:46)
[2021-05-09 11:48] VITALS: BP 122/83
[2021-05-09] MEDS ORDERED: FAMOTIDINE 20 MG TAB PO SCH (16:30)
== END 2021-05-09 13:30 | disposition home or self-care (01) ==
LOC: FSED 19:20 → ERHOLD 20:21 → MED/SURG3 21:51
PROVIDERS: ADMIT Internal Medicine; ATTEND Internal Medicine
DX: K35.80 Unspecified acute appendicitis (principal); J02.9 Acute pharyngitis, unspecified; E66.9 Obesity, unspecified; Z68.32 Body mass index [BMI] 32.0-32.9, adult; G89.4 Chronic pain syndrome; I10 Essential (primary) hypertension; E03.9 Hypothyroidism, unspecified; G40.909 Epilepsy, unspecified, not intractable, without status epilepticus; R77.8 Other specified abnormalities of plasma proteins; Z90.49 Acquired absence of other specified parts of digestive tract; Z20.822 Contact with and (suspected) exposure to COVID-19
CPT/HCPCS: 36415 ×2; 44970; 74177; 80048 ×3; 80061; 80076 ×2; 81003; 82550; 82553 ×2; 83036; 83690; 84484 ×2; 85025 ×3; 86308; 86644; 86645; 86663; 86664; 86665; 88304; 93005; 96374; 96375; 96376; 99284; G0378 ×3; J0461; J0694; J1100; J1953; J2001; J2250; J2270 ×3; J2405 ×3; J2543 ×2; J2704; J2710; J3010; J7030 ×2; J7050; U0002

== ENCOUNTER 2021-05-12 01:18 | Emergency (ER) | payer MEDICARE ==
[~2021-05-12] VITALS: Ht 325.1 cm; Wt 96.2 kg
[~2021-05-12 01:18] MED LIST changes: +CARVEDILOL6.25 MG PO; +CITALOPRAM HBR20 MG PO; +GABAPENTIN600 MG PO; +HYDROCHLOROTHIA25 MG PO; +HYDROXYCHLOROQ200 MG PO; +LEVETIRACETAM500 MG PO; +LEVOTHYROXINE175 MCG PO; +LINZESS290 MCG PO; +METHYLPREDNISOLO4 MG PO; +MORPHINE SULFAT15 M1 PO; +SUMATRIPTAN SUC25 MG PO
[2021-05-12 01:52] LABS: BASOPHILS % 0.3 % (0.0-1.0); EOSINOPHILS # (AUTO) 0.7 (0.0-0.4); EOSINOPHILS % 7.3 % (0.0-6.0); HEMATOCRIT 36.9 % (34.2-44.1); HEMOGLOBIN 12.1 g/dL (12.0-16.0); LYMPHOCYTES # (AUTO) 3.5 (1.0-3.2); LYMPHOCYTES % 37.8 % (18.0-39.1); MEAN CORPUSCULAR HEMOGLOBIN 27.2 pg (28-32); MEAN CORPUSCULAR HGB CONC 32.8 g/dL (31-35); MEAN CORPUSCULAR VOLUME 82.9 fL (81-99); MONOCYTES # (AUTO) 0.7 (0.2-0.8); MONOCYTES % 7.3 % (4.4-11.3); NEUTROPHILS # (AUTO) 4.3 (2.1-6.9); NEUTROPHILS % 47.1 % (38.7-80.0); PLATELET COUNT 341 x10e3/uL (140-360); RED BLOOD COUNT 4.45 x10e6/uL (3.6-5.1); RED CELL DISTRIBUTION WIDTH 11.6 % (11.7-14.4)
[2021-05-12 02:14] VITALS: BP 121/82
[2021-05-12 02:15] LABS: ALBUMIN 4.1 g/dL (3.5-5.0); ALBUMIN/GLOBULIN RATIO 1.1 (0.8-2.0); ANION GAP 14.9 mmol/L (8-16); CREATININE, SERUM 0.95 mg/dL (0.57-1.11); POTASSIUM 3.9 mmol/L (3.5-5.1)
== END 2021-05-12 03:12 | disposition home or self-care (01) ==
LOC: ER 01:32
DX: R55 Syncope and collapse (principal); R53.1 Weakness; R42 Dizziness and giddiness; I10 Essential (primary) hypertension; E03.9 Hypothyroidism, unspecified; G40.909 Epilepsy, unspecified, not intractable, without status epilepticus; M06.9 Rheumatoid arthritis, unspecified; G62.9 Polyneuropathy, unspecified; M54.9 Dorsalgia, unspecified; G89.29 Other chronic pain
CPT/HCPCS: 36415; 80053; 84484; 85025; 93005; 99283

== ENCOUNTER 2024-05-06 03:09 | Emergency (ER) | payer SELFPAY ==
[~2024-05-06] VITALS: Ht 172.7 cm; Wt 86.2 kg
[2024-05-06 03:16] VITALS: TEMP 98.7
[2024-05-06] MEDS ORDERED: IOPAMIDOL 370 MG/ML 100 ML INFUS..BTL INJ ONE (04:19)
[2024-05-06 04:36] LABS: BASOPHILS # (AUTO) 0.1 (0.0-0.1); BASOPHILS % 0.8 % (0.0-1.0); EOSINOPHILS # (AUTO) 0.5 (0.0-0.4); EOSINOPHILS % 8.1 % (0.0-6.0); HEMATOCRIT 33.1 % (34.2-44.1); LYMPHOCYTES # (AUTO) 2.4 (1.0-3.2); LYMPHOCYTES % 39.7 % (18.0-39.1); MEAN CORPUSCULAR HEMOGLOBIN 29.9 pg (28-32); MEAN CORPUSCULAR HGB CONC 33.2 g/dL (31-35); MEAN CORPUSCULAR VOLUME 89.9 fL (81-99); MONOCYTES # (AUTO) 0.4 (0.2-0.8); MONOCYTES % 5.8 % (4.4-11.3); NEUTROPHILS # (AUTO) 2.7 (2.1-6.9); NEUTROPHILS % 45.4 % (38.7-80.0); PLATELET COUNT 276 x10e3/uL (140-360); RED BLOOD COUNT 3.68 x10e6/uL (3.6-5.1); RED CELL DISTRIBUTION WIDTH 12.3 % (11.7-14.4); WHITE BLOOD COUNT 6.02 x10e3/uL (4.8-10.8)
[2024-05-06 05:12] VITALS: PULSE 45; RESP 15
[2024-05-06] MEDS ORDERED: ASPIRIN 325 MG TAB ONE (05:21)
[2024-05-06] MEDS: ASPIRIN 325 MG TAB PO ONE (05:29)
[2024-05-06 06:03] VITALS: BP 168/93; PULSE 48; RESP 18; TEMP 98.7; O2SAT 97
== END 2024-05-06 06:08 | disposition other institution (70) ==
LOC: FSED 03:14
DX: R20.0 Anesthesia of skin (principal); R20.2 Paresthesia of skin; Z60.8 Other problems related to social environment; I10 Essential (primary) hypertension; E03.9 Hypothyroidism, unspecified; G40.909 Epilepsy, unspecified, not intractable, without status epilepticus; M06.9 Rheumatoid arthritis, unspecified; M54.9 Dorsalgia, unspecified; G89.29 Other chronic pain; F41.9 Anxiety disorder, unspecified; F32.A Depression, unspecified; R94.31 Abnormal electrocardiogram [ECG] [EKG]
CPT/HCPCS: 36415; 70450; 70496; 80053; 80307; 81003; 84484; 85025; 93005; 99284; Q9967